=== PATIENT | male | born 1950 | race Native Hawaiian/Other Pacific Islander ===

== ENCOUNTER 2017-09-18 09:55 | Day surgery (SDC) | payer MEDICARE, OTHER ==
[2015-06-29 07:10] VITALS: BMI 29.9
[2017-09-18] MEDS ORDERED: Gentamicin 160 MG in Sodium Chloride 0.9% 100 ML IVPB ONE (11:33)
[2017-09-18] MEDS ORDERED: Ciprofloxacin 400mg/200ml D5W 400 MG/200 ML BAG IVPB ONE (11:36)
[2017-09-18] MEDS ORDERED: Lidocaine 2% Jelly (Uro-Jet) ONE (11:37)
[2017-09-18] MEDS ORDERED: Propofol 10 mg/ml Inj (20 ML) ONE (11:48)
--- NOTE | 2017-09-18 12:15 | PCM.SURG1 ---
Surgeon's Initial Post Op Note - Surgeon's Notes Surgeon: Juan Francisco Sewing Teacher: pat Type of Anesthesia: General Mask Anesthesia Administered By: staff Pre-Operative Diagnosis: BPH/Elevated PSA Operative Findings: Enlarged prostate w COREY Post-Operative Diagnosis: same Operation Performed: Cysto/trans rectal us guided bx Specimen/Specimens Removed: 12 core bx Estimated Blood Loss: EBL {In ML}: 0 Blood Products Given: N/A Drains Used: No Drains Post-Op Condition: Good Date of Surgery/Procedure: 09/18/17 Time of Surgery/Procedure: 12:16
[2017-09-18] MEDS ORDERED: HYDROmorphone 0.5 mg/0.5 ml ISec IVP PRN (12:29)
[2017-09-18] MEDS ORDERED: Lactated Ringer's 1,000 ML IV SCH (12:30)
[2017-09-18 13:35] VITALS: BP 124/89; PULSE 83; RESP 18; TEMP 97.7; O2SAT 99
--- NOTE | 2017-09-18 15:19 | OP ---
PROCEDURE DATE: 09/18/2017 PREOPERATIVE DIAGNOSES: Elevated prostate-specific antigen and lower urinary tract symptoms and enlarged prostate. POSTOPERATIVE DIAGNOSES: Benign prostatic hypertrophy, elevated prostate-specific antigen, with bladder outlet obstruction. FINDINGS: Trilobar hypertrophy of the prostate and an enlarged prostate on rectal exam and compensatory trabeculation of bladder. DESCRIPTION OF PROCEDURE: The patient was draped and prepped in usual manner. He received prophylactic antibiotics. He was given a Betadine enema. This was all done after he signed a detailed informed consent, explaining all risks and complications of the procedure and alternative methods of managing elevated PSA and lower urinary tract symptoms. After adequate anesthesia was achieved, the patient was subjected to transrectal ultrasonography and a 12-core biopsy was taken in a symmetrical fashion to evaluate the elevated PSA. The patient was then re-draped and prepped and he was cystoscoped with #21 Storz panendoscope to evaluate bladder outlet obstruction. The pendulous and membranous urethra was normal. The prostatic urethra showed trilobar hypertrophy with a prominent median lobe. The bladder was entered atraumatically. There was no evidence of urothelial tumor or stone. The patient tolerated this procedure well. Based on these findings, the patient is a candidate for GreenLight laser or other bladder outlet obstruction reduction therapy if biopsy is negative for cancer. If biopsy is positive, further workup will depend on biopsy results. Henrik Chicas MD
== END 2017-09-18 13:35 | disposition home or self-care (01) ==
LOC: C.SDS 09:55
PROVIDERS: ATTEND Urology
DX: N40.1 Benign prostatic hyperplasia with lower urinary tract symptoms (principal); R97.20 Elevated prostate specific antigen [PSA]; N13.8 Other obstructive and reflux uropathy; N32.89 Other specified disorders of bladder; R35.1 Nocturia; R33.8 Other retention of urine; R39.198 Other difficulties with micturition
CPT/HCPCS: 55700; 88305; J0744; J1580

== ENCOUNTER 2017-10-03 07:40 | Day surgery (SDC) | payer MEDICARE, OTHER ==
[2015-06-29 07:10] VITALS: BMI 29.9
[2017-10-03] MEDS ORDERED: Gentamicin 160 MG in Sodium Chloride 0.9% 100 ML IVPB ONE (09:56)
[2017-10-03] MEDS ORDERED: Propofol 10 mg/ml Inj (20 ML) ONE (10:33)
[2017-10-03] MEDS ORDERED: Midazolam 2 MG/2 ML VIAL ONE (10:33)
[2017-10-03] MEDS: Ciprofloxacin 400mg/200ml D5W 400 MG/200 ML BAG IVPB ONE ×2 (10:50→10:55)
--- NOTE | 2017-10-03 11:27 | PCM.SURG1 ---
Surgeon's Initial Post Op Note - Surgeon's Notes Surgeon: Juan Francisco Tank Assembler: EVAN Type of Anesthesia: General Endo, General LMA Anesthesia Administered By: Staff Pre-Operative Diagnosis: BPH/COREY Operative Findings: BPH/COREY Post-Operative Diagnosis: BPH/COREY Operation Performed: TULAP Specimen/Specimens Removed: na Estimated Blood Loss: EBL {In ML}: 0 Blood Products Given: N/A Drains Used: No Drains Post-Op Condition: Good Date of Surgery/Procedure: 10/03/17 Time of Surgery/Procedure: 11:27
[2017-10-03] MEDS ORDERED: HYDROmorphone 0.5 mg/0.5 ml ISec IVP PRN (11:38)
[2017-10-03] MEDS ORDERED: Lactated Ringer's 1,000 ML IV SCH (11:45)
[2017-10-03 13:33] VITALS: RESP 16
[2017-10-03 15:24] VITALS: BP 144/99; PULSE 84; TEMP 97.5; O2SAT 99
--- NOTE | 2017-10-03 22:33 | OP ---
PROCEDURE DATE: 10/03/2017 SURGEON: Henrik Chicas MD PREOPERATIVE DIAGNOSIS: Benign prostatic hyperplasia with bladder outlet obstruction. POSTOPERATIVE DIAGNOSIS: Benign prostatic hyperplasia with bladder outlet obstruction. DESCRIPTION OF PROCEDURE: The procedure is as follows: Prior to the procedure, a detailed informed consent was obtained from the patient explaining all risks, complications, and alternative methods for treating BPH with bladder outlet obstruction. The patient consented to receiving the procedure and accepted the risks, was brought into the room, and a time-out was taken according to the rules and regulations of [facility]. Prophylactic antibiotic was given. The patient was positioned and draped and prepped in the usual manner. Cystoscoped with a laser cystoscope. Previous cystoscopic findings were confirmed. Laser vaporization of the obstructing prostate tissue began just distal to the bladder neck at 11 o'clock. The entire right lobe was vaporized to just proximal to the verumontanum. The left lobe, the base tissue and roof tissue, vaporized in a similar manner. No injury occurred to the bladder, ureteral orifices, or verumontanum during the procedure. Minimal bleeding occurred. The patient tolerated this procedure well, and a #20 two-way 5 mL catheter was inserted. It drained clear irrigant fluid. The patient tolerated this procedure very well, was sent to the recovery area in good condition. Henrik Chicas MD
== END 2017-10-03 14:57 | disposition home or self-care (01) ==
LOC: C.SDS 07:40
PROVIDERS: ATTEND Urology
DX: N40.1 Benign prostatic hyperplasia with lower urinary tract symptoms (principal); N13.8 Other obstructive and reflux uropathy
CPT/HCPCS: 52648; J0744; J1170; J1580